=== PATIENT | male | born 1995 | race Caucasian/White ===

== ENCOUNTER 2016-12-26 21:33 | Emergency (ER) | payer SELFPAY ==
[~2016-12-26] VITALS: Ht 162.6 cm; Wt 75.0 kg
[2016-12-26 22:21] VITALS: BP 121/78
== END 2016-12-26 22:27 | disposition home or self-care (01) ==
LOC: EDBD 21:35 → EMS 21:35
DX: L03.115 Cellulitis of right lower limb (principal); F17.210 Nicotine dependence, cigarettes, uncomplicated; F12.90 Cannabis use, unspecified, uncomplicated
CPT/HCPCS: 99283